=== PATIENT | male | born 1955 | race Two or more races ===

== ENCOUNTER → 2017-03-01 | Outpatient (CLI) | payer OTHER | END | disposition home or self-care (01) | LOC: LAB 14:14 | DX: N41.9 Inflammatory disease of prostate, unspecified (principal) | CPT/HCPCS: 87086 ==

== ENCOUNTER → 2017-06-16 | Outpatient (CLI) | payer OTHER ==
[2017-06-16 13:10] LABS: BASOPHILS ABSOLUTE AUTO 0.07 K/mm3 (0.00-0.23); BASOPHILS PERCENT AUTO 1 % (0-2); EOSINOPHILS ABSOLUTE AUTO 0.21 K/mm3 (0.00-0.68); EOSINOPHILS PERCENT AUTO 3 % (0-6); Hematocrit 48.7 % (37.0-53.0); Hemoglobin 16.7 g/dL (13.5-17.5); IMMATURE GRAN ABSOLUTE AUTO 0.02 K/mm3 (0.00-0.10); IMMATURE GRAN PERCENT AUTO 0 % (0-1); LYMPHOCYTES ABSOLUTE AUTO 0.92 K/mm3 (0.84-5.20); LYMPHOCYTES PERCENT AUTO 14 % (21-46); MONOCYTES ABSOLUTE AUTO 0.53 K/mm3 (0.16-1.47); MONOCYTES PERCENT AUTO 8 % (4-13); Mean Corpuscular HGB 30.1 pg (26.0-34.0); Mean Corpuscular HGB Conc 34.3 g/dL (31.5-36.5); Mean Corpuscular Volume 88 fL (80-100); Mean Platelet Volume 10.5 fL (9.1-12.4); NEUTROPHILS ABSOLUTE AUTO 4.88 K/mm3 (1.96-9.15); NEUTROPHILS PERCENT AUTO 74 % (41-73); Platelet Count 217 K/mm3 (150-400); RDW Coefficient Variation 12.8 % (11.7-14.2); RDW Standard Deviation 41.4 fL (35.1-46.3); Red Blood Cell Count 5.54 M/mm3 (4.30-5.90); White Blood Cell Count 6.63 K/mm3 (4.00-11.30)
[2017-06-16 13:20] LABS: Anion Gap 7 mmol/L (6-16); Blood Urea Nitrogen 8 mg/dL (8-24); Bun/Creatinine Ratio 7.4 (12.0-20.0); CO2, Blood 30 mmol/L (21-32); Calcium, Blood 8.9 mg/dL (8.5-10.1); Chloride, Blood 100 mmol/L (98-108); Creatinine, Blood 1.08 mg/dL (0.60-1.20); Glomerular Filtration Rate >60 (60-); Glucose, Blood 106 mg/dL (70-99); Potassium, Blood 4.4 mmol/L (3.5-5.5); Sodium, Blood 137 mmol/L (136-145)
== END | disposition home or self-care (01) ==
LOC: LAB EV 13:05 → LAB SHORT 13:05
PROVIDERS: Family Medicine
DX: B34.9 Viral infection, unspecified (principal)
CPT/HCPCS: 80048; 85025

== ENCOUNTER → 2017-06-29 | Outpatient (CLI) | payer OTHER | LOC: LAB 14:20 → LAB SHORT 14:20 | PROVIDERS: Hospitalist | DX: Z12.5 Encounter for screening for malignant neoplasm of prostate (principal) | CPT/HCPCS: G0103 ==

== ENCOUNTER → 2017-09-05 | Outpatient (CLI) | payer OTHER ==
[2017-09-05 14:02] LABS: BASOPHILS ABSOLUTE AUTO 0.04 K/mm3 (0.00-0.23); BASOPHILS PERCENT AUTO 1 % (0-2); EOSINOPHILS PERCENT AUTO 1 % (0-6); Hematocrit 46.5 % (37.0-53.0); Hemoglobin 15.9 g/dL (13.5-17.5); IMMATURE GRAN ABSOLUTE AUTO 0.02 K/mm3 (0.00-0.10); IMMATURE GRAN PERCENT AUTO 0 % (0-1); LYMPHOCYTES ABSOLUTE AUTO 1.02 K/mm3 (0.84-5.20); LYMPHOCYTES PERCENT AUTO 14 % (21-46); MONOCYTES ABSOLUTE AUTO 0.54 K/mm3 (0.16-1.47); MONOCYTES PERCENT AUTO 7 % (4-13); Mean Corpuscular HGB 30.2 pg (26.0-34.0); Mean Corpuscular HGB Conc 34.2 g/dL (31.5-36.5); Mean Corpuscular Volume 88 fL (80-100); Mean Platelet Volume 11.1 fL (9.1-12.4); NEUTROPHILS ABSOLUTE AUTO 5.62 K/mm3 (1.96-9.15); NEUTROPHILS PERCENT AUTO 77 % (41-73); Platelet Count 219 K/mm3 (150-400); RDW Coefficient Variation 12.8 % (11.7-14.2); RDW Standard Deviation 41.1 fL (35.1-46.3); Red Blood Cell Count 5.27 M/mm3 (4.30-5.90); White Blood Cell Count 7.34 K/mm3 (4.00-11.30)
[2017-09-05 15:10] LABS: Alanine Aminotransfer (ALT/SGP 18 U/L (12-78); Albumin, Blood 4.2 g/dL (3.4-5.0); Albumin/Globulin Ratio 1.2 (0.8-1.8); Alk Phos 79 U/L (50-136); Anion Gap 10 mmol/L (6-16); Aspartate Aminotrans (AST/SGOT 14 U/L (12-37); Bilirubin, Total 0.6 mg/dL (0.1-1.0); Blood Urea Nitrogen 12 mg/dL (8-24); Bun/Creatinine Ratio 13.8 (12.0-20.0); CO2, Blood 23 mmol/L (21-32); Calcium, Blood 9.1 mg/dL (8.5-10.1); Chloride, Blood 105 mmol/L (98-108); Creatinine, Blood 0.87 mg/dL (0.60-1.20); Globulin, Blood 3.5 g/dL (2.2-4.0); Glomerular Filtration Rate >60 (60-); Glucose, Blood 93 mg/dL (70-99); Potassium, Blood 4.3 mmol/L (3.5-5.5); Sodium, Blood 138 mmol/L (136-145); Total Protein, Blood 7.7 g/dL (6.4-8.2)
== END ==
LOC: LAB SHORT 11:29 → LAB 11:29
PROVIDERS: Hospitalist
DX: R10.11 Right upper quadrant pain (principal)
CPT/HCPCS: 80053; 85025; 85651

== ENCOUNTER → 2017-11-06 | Outpatient (CLI) | payer OTHER ==
[2017-11-06 18:07] LABS: BASOPHILS ABSOLUTE AUTO 0.06 K/mm3 (0.00-0.23); BASOPHILS PERCENT AUTO 1 % (0-2); EOSINOPHILS ABSOLUTE AUTO 0.22 K/mm3 (0.00-0.68); EOSINOPHILS PERCENT AUTO 3 % (0-6); Hematocrit 45.4 % (37.0-53.0); Hemoglobin 15.4 g/dL (13.5-17.5); IMMATURE GRAN ABSOLUTE AUTO 0.03 K/mm3 (0.00-0.10); IMMATURE GRAN PERCENT AUTO 0 % (0-1); LYMPHOCYTES ABSOLUTE AUTO 1.59 K/mm3 (0.84-5.20); LYMPHOCYTES PERCENT AUTO 20 % (21-46); MONOCYTES ABSOLUTE AUTO 0.62 K/mm3 (0.16-1.47); MONOCYTES PERCENT AUTO 8 % (4-13); Mean Corpuscular HGB 30.1 pg (26.0-34.0); Mean Corpuscular HGB Conc 33.9 g/dL (31.5-36.5); Mean Corpuscular Volume 89 fL (80-100); NEUTROPHILS ABSOLUTE AUTO 5.35 K/mm3 (1.96-9.15); NEUTROPHILS PERCENT AUTO 68 % (41-73); Platelet Count 226 K/mm3 (150-400); RDW Coefficient Variation 12.4 % (11.7-14.2); RDW Standard Deviation 40.7 fL (35.1-46.3); Red Blood Cell Count 5.11 M/mm3 (4.30-5.90); White Blood Cell Count 7.87 K/mm3 (4.00-11.30)
[2017-11-06 18:51] LABS: Anion Gap 8 mmol/L (6-16); Blood Urea Nitrogen 9 mg/dL (8-24); Bun/Creatinine Ratio 10.1 (12.0-20.0); CO2, Blood 25 mmol/L (21-32); Calcium, Blood 8.6 mg/dL (8.5-10.1); Chloride, Blood 106 mmol/L (98-108); Creatinine, Blood 0.89 mg/dL (0.60-1.20); Glomerular Filtration Rate >60 (60-); Glucose, Blood 86 mg/dL (70-99); Potassium, Blood 4.1 mmol/L (3.5-5.5); Sodium, Blood 139 mmol/L (136-145)
== END | disposition home or self-care (01) ==
LOC: LAB 15:52 → LAB SHORT 15:52
PROVIDERS: Hospitalist
DX: N41.0 Acute prostatitis (principal)
CPT/HCPCS: 80048; 85025

== ENCOUNTER → 2018-08-27 | Outpatient (CLI) | payer OTHER ==
[2018-08-27 14:19] LABS: BASOPHILS ABSOLUTE AUTO 0.05 K/mm3 (0.00-0.23); BASOPHILS PERCENT AUTO 1 % (0-2); EOSINOPHILS ABSOLUTE AUTO 0.13 K/mm3 (0.00-0.68); EOSINOPHILS PERCENT AUTO 2 % (0-6); Hematocrit 49.5 % (37.0-53.0); Hemoglobin 16.3 g/dL (13.5-17.5); IMMATURE GRAN ABSOLUTE AUTO 0.02 K/mm3 (0.00-0.10); IMMATURE GRAN PERCENT AUTO 0 % (0-1); LYMPHOCYTES ABSOLUTE AUTO 0.92 K/mm3 (0.84-5.20); LYMPHOCYTES PERCENT AUTO 15 % (21-46); MONOCYTES ABSOLUTE AUTO 0.54 K/mm3 (0.16-1.47); MONOCYTES PERCENT AUTO 9 % (4-13); Mean Corpuscular HGB 30.1 pg (26.0-34.0); Mean Corpuscular HGB Conc 32.9 g/dL (31.5-36.5); Mean Corpuscular Volume 92 fL (80-100); Mean Platelet Volume 11.1 fL (9.1-12.4); NEUTROPHILS ABSOLUTE AUTO 4.44 K/mm3 (1.96-9.15); NEUTROPHILS PERCENT AUTO 73 % (41-73); Platelet Count 206 K/mm3 (150-400); RDW Coefficient Variation 13.4 % (11.7-14.2); RDW Standard Deviation 44.7 fL (35.1-46.3); Red Blood Cell Count 5.41 M/mm3 (4.30-5.90)
[2018-08-27 14:35] LABS: Alanine Aminotransfer (ALT/SGP 26 U/L (12-78); Albumin, Blood 4.3 g/dL (3.4-5.0); Albumin/Globulin Ratio 1.5 (0.8-1.8); Alk Phos 79 U/L (50-136); Anion Gap 7 mmol/L (6-16); Aspartate Aminotrans (AST/SGOT 15 U/L (12-37); Bilirubin, Total 0.8 mg/dL (0.1-1.0); Blood Urea Nitrogen 9 mg/dL (8-24); Bun/Creatinine Ratio 9.3 (12.0-20.0); CO2, Blood 26 mmol/L (21-32); Calcium, Blood 9.9 mg/dL (8.5-10.1); Chloride, Blood 105 mmol/L (98-108); Creatinine, Blood 0.97 mg/dL (0.60-1.20); Globulin, Blood 2.9 g/dL (2.2-4.0); Glomerular Filtration Rate >60 (60-); Glucose, Blood 99 mg/dL (70-99); Sodium, Blood 138 mmol/L (136-145); Total Protein, Blood 7.2 g/dL (6.4-8.2)
== END | disposition home or self-care (01) ==
LOC: LAB SHORT 13:51 → LAB 13:51
PROVIDERS: Hospitalist
DX: R59.9 Enlarged lymph nodes, unspecified (principal)
CPT/HCPCS: 80053; 85025; 85651

== ENCOUNTER → 2018-12-06 | Outpatient (CLI) | payer OTHER ==
[2018-12-06 16:30] LABS: BASOPHILS ABSOLUTE AUTO 0.08 K/mm3 (0.00-0.23); BASOPHILS PERCENT AUTO 1 % (0-2); EOSINOPHILS ABSOLUTE AUTO 0.26 K/mm3 (0.00-0.68); EOSINOPHILS PERCENT AUTO 4 % (0-6); Hematocrit 46.9 % (37.0-53.0); Hemoglobin 15.3 g/dL (13.5-17.5); IMMATURE GRAN ABSOLUTE AUTO 0.01 K/mm3 (0.00-0.10); IMMATURE GRAN PERCENT AUTO 0 % (0-1); LYMPHOCYTES ABSOLUTE AUTO 0.87 K/mm3 (0.84-5.20); LYMPHOCYTES PERCENT AUTO 13 % (21-46); MONOCYTES ABSOLUTE AUTO 0.65 K/mm3 (0.16-1.47); MONOCYTES PERCENT AUTO 10 % (4-13); Mean Corpuscular HGB 29.8 pg (26.0-34.0); Mean Corpuscular HGB Conc 32.6 g/dL (31.5-36.5); Mean Corpuscular Volume 91 fL (80-100); Mean Platelet Volume 11.7 fL (9.1-12.4); NEUTROPHILS ABSOLUTE AUTO 4.79 K/mm3 (1.96-9.15); NEUTROPHILS PERCENT AUTO 72 % (41-73); Platelet Count 216 K/mm3 (150-400); RDW Coefficient Variation 12.5 % (11.7-14.2); RDW Standard Deviation 41.2 fL (35.1-46.3); Red Blood Cell Count 5.14 M/mm3 (4.30-5.90); White Blood Cell Count 6.66 K/mm3 (4.00-11.30)
[2018-12-06 17:25] LABS: Alanine Aminotransfer (ALT/SGP 24 U/L (12-78); Albumin/Globulin Ratio 1.5 (0.8-1.8); Alk Phos 79 U/L (50-136); Amylase, Blood 16 U/L (25-115); Anion Gap 6 mmol/L (6-16); Aspartate Aminotrans (AST/SGOT 12 U/L (12-37); Bilirubin, Total 0.5 mg/dL (0.1-1.0); Blood Urea Nitrogen 6 mg/dL (8-24); Bun/Creatinine Ratio 7.4 (12.0-20.0); CO2, Blood 25 mmol/L (21-32); Calcium, Blood 8.9 mg/dL (8.5-10.1); Chloride, Blood 107 mmol/L (98-108); Creatinine, Blood 0.81 mg/dL (0.60-1.20); Globulin, Blood 2.7 g/dL (2.2-4.0); Glomerular Filtration Rate >60 (60-); Glucose, Blood 100 mg/dL (70-99); Potassium, Blood 4.1 mmol/L (3.5-5.5); Sodium, Blood 138 mmol/L (136-145); Total Protein, Blood 6.7 g/dL (6.4-8.2)
== END | disposition home or self-care (01) ==
LOC: LAB 14:21 → LAB SHORT 14:21
PROVIDERS: Hospitalist
DX: R10.11 Right upper quadrant pain (principal)
CPT/HCPCS: 80053; 82150; 85025

== ENCOUNTER → 2020-04-02 | Outpatient (CLI) | payer MEDICARE, OTHER ==
[~2020-04-02] MED LIST: ASPI81CH PO; ATEN25; Betamethasone V15 GM; ESOM20 PO; LATA.005SO; OMEP20ER PO; ONDA4ODT MM; RANO500T; ROSU5 PO; SUMA25 PO; VERA180ER PO
[2020-04-02 16:28] LABS: BASOPHILS ABSOLUTE AUTO 0.06 K/mm3 (0.00-0.23); BASOPHILS PERCENT AUTO 1 % (0-2); EOSINOPHILS ABSOLUTE AUTO 0.14 K/mm3 (0.00-0.68); EOSINOPHILS PERCENT AUTO 2 % (0-6); Hematocrit 50.4 % (37.0-53.0); Hemoglobin 16.9 g/dL (13.5-17.5); IMMATURE GRAN ABSOLUTE AUTO 0.02 K/mm3 (0.00-0.10); IMMATURE GRAN PERCENT AUTO 0 % (0-1); LYMPHOCYTES ABSOLUTE AUTO 0.97 K/mm3 (0.84-5.20); LYMPHOCYTES PERCENT AUTO 14 % (21-46); MONOCYTES ABSOLUTE AUTO 0.67 K/mm3 (0.16-1.47); MONOCYTES PERCENT AUTO 9 % (4-13); Mean Corpuscular HGB 31.7 pg (26.0-34.0); Mean Corpuscular HGB Conc 33.5 g/dL (31.5-36.5); Mean Corpuscular Volume 95 fL (80-100); Mean Platelet Volume 11.3 fL (9.1-12.4); NEUTROPHILS ABSOLUTE AUTO 5.29 K/mm3 (1.96-9.15); NEUTROPHILS PERCENT AUTO 74 % (41-73); Platelet Count 218 K/mm3 (150-400); RDW Coefficient Variation 12.6 % (11.7-14.2); RDW Standard Deviation 43.1 fL (35.1-46.3); Red Blood Cell Count 5.33 M/mm3 (4.30-5.90); White Blood Cell Count 7.15 K/mm3 (4.00-11.30)
[2020-04-02 16:55] LABS: Alanine Aminotransfer (ALT/SGP 20 U/L (12-78); Albumin, Blood 4.1 g/dL (3.4-5.0); Albumin/Globulin Ratio 1.5 (0.8-1.8); Alk Phos 76 U/L (50-136); Anion Gap 7 mmol/L (6-16); Aspartate Aminotrans (AST/SGOT 8 U/L (12-37); Bilirubin, Total 0.6 mg/dL (0.1-1.0); Blood Urea Nitrogen 12 mg/dL (8-24); Bun/Creatinine Ratio 12.8 (12.0-20.0); CO2, Blood 22 mmol/L (21-32); Calcium, Blood 9.1 mg/dL (8.5-10.1); Chloride, Blood 110 mmol/L (98-108); Creatinine, Blood 0.94 mg/dL (0.60-1.20); Globulin, Blood 2.8 g/dL (2.2-4.0); Glomerular Filtration Rate >60 (60-); Glucose, Blood 91 mg/dL (70-99); Potassium, Blood 4.3 mmol/L (3.5-5.5); Sodium, Blood 139 mmol/L (136-145); Total Protein, Blood 6.9 g/dL (6.4-8.2)
== END | disposition home or self-care (01) ==
LOC: LAB SHORT 09:55 → PLD 09:55
PROVIDERS: Hospitalist
DX: Z12.5 Encounter for screening for malignant neoplasm of prostate (principal); I25.10 Atherosclerotic heart disease of native coronary artery without angina pectoris; R30.0 Dysuria
CPT/HCPCS: 80053; 85025; 87086; G0103

== ENCOUNTER 2020-05-29 11:36 | Day surgery (SDC) | payer MEDICARE, OTHER ==
[~2020-05-29] VITALS: Ht 182.9 cm; Wt 95.9 kg
[~2020-05-29 11:36] MED LIST changes: -Betamethasone V15 GM; -LATA.005SO; -OMEP20ER PO; -ONDA4ODT MM; -RANO500T
[2020-05-29] MEDS ORDERED: RANO500T (11:55)
[2020-05-29] MEDS ORDERED: LATA.005SO (11:56)
[2020-05-29] MEDS ORDERED: Betamethasone V15 GM (11:57)
== END 2020-05-29 12:58 | disposition home or self-care (01) ==
LOC: ORSCSDS 11:36
PROVIDERS: Internal Medicine Gastroenterology
PROC: 0DBH8ZX Excision of Cecum, Via Natural or Artificial Opening Endoscopic, Diagnostic (ICD-10-PCS; principal; 2020-05-29 13:30)
DX: R19.5 Other fecal abnormalities (principal); D12.0 Benign neoplasm of cecum; K64.8 Other hemorrhoids; R19.4 Change in bowel habit; I25.2 Old myocardial infarction; K57.30 Diverticulosis of large intestine without perforation or abscess without bleeding; K21.9 Gastro-esophageal reflux disease without esophagitis; Z86.19 Personal history of other infectious and parasitic diseases; Z79.899 Other long term (current) drug therapy
CPT/HCPCS: 88305; J2704; J7120

== ENCOUNTER 2020-08-06 16:01 | Emergency (ER) | payer MEDICARE, OTHER ==
[~2020-08-06] VITALS: Ht 188 cm; Wt 95.2 kg
[~2020-08-06 16:01] MED LIST changes: +Betamethasone V15 GM; +LATA.005SO; +RANO500T
== END 2020-08-06 17:08 | disposition home or self-care (01) ==
LOC: ER 16:01
DX: M79.662 Pain in left lower leg (principal); F17.220 Nicotine dependence, chewing tobacco, uncomplicated; Z79.82 Long term (current) use of aspirin; Z79.899 Other long term (current) drug therapy; Z88.0 Allergy status to penicillin; Z88.8 Allergy status to other drugs, medicaments and biological substances
CPT/HCPCS: 93971; 99283-25

== ENCOUNTER 2020-08-31 13:31 | Emergency (ER) | payer MEDICARE, OTHER ==
[~2020-08-31] VITALS: Ht 185.4 cm; Wt 95.2 kg
[2020-08-31 14:09] LABS: BASOPHILS ABSOLUTE AUTO 0.05 K/mm3 (0.00-0.23); BASOPHILS PERCENT AUTO 1 % (0-2); EOSINOPHILS ABSOLUTE AUTO 0.12 K/mm3 (0.00-0.68); EOSINOPHILS PERCENT AUTO 2 % (0-6); IMMATURE GRAN ABSOLUTE AUTO 0.02 K/mm3 (0.00-0.10); IMMATURE GRAN PERCENT AUTO 0 % (0-1); LYMPHOCYTES ABSOLUTE AUTO 0.93 K/mm3 (0.84-5.20); LYMPHOCYTES PERCENT AUTO 13 % (21-46); MONOCYTES ABSOLUTE AUTO 0.61 K/mm3 (0.16-1.47); MONOCYTES PERCENT AUTO 8 % (4-13); Mean Corpuscular HGB Conc 34.7 g/dL (31.5-36.5); Mean Corpuscular Volume 89 fL (80-100); Mean Platelet Volume 10.4 fL (9.1-12.4); NEUTROPHILS ABSOLUTE AUTO 5.56 K/mm3 (1.96-9.15); NEUTROPHILS PERCENT AUTO 76 % (41-73); Platelet Count 217 K/mm3 (150-400); RDW Coefficient Variation 12.7 % (11.7-14.2); RDW Standard Deviation 41.3 fL (35.1-46.3); Red Blood Cell Count 5.48 M/mm3 (4.30-5.90); White Blood Cell Count 7.29 K/mm3 (4.00-11.30)
[2020-08-31 14:34] LABS: Alanine Aminotransfer (ALT/SGP 19 U/L (12-78); Albumin, Blood 3.9 g/dL (3.4-5.0); Albumin/Globulin Ratio 1.1 (0.8-1.8); Alk Phos 74 U/L (50-136); Anion Gap 7 mmol/L (6-16); Aspartate Aminotrans (AST/SGOT 11 U/L (12-37); Bilirubin, Total 0.3 mg/dL (0.1-1.0); Blood Urea Nitrogen 10 mg/dL (8-24); CO2, Blood 22 mmol/L (21-32); Calcium, Blood 8.6 mg/dL (8.5-10.1); Chloride, Blood 108 mmol/L (98-108); Creatinine, Blood 0.91 mg/dL (0.60-1.20); Globulin, Blood 3.4 g/dL (2.2-4.0); Glomerular Filtration Rate >60 (60-); Glucose, Blood 126 mg/dL (70-99); Potassium, Blood 4.2 mmol/L (3.5-5.5); Sodium, Blood 137 mmol/L (136-145); Total Protein, Blood 7.3 g/dL (6.4-8.2)
[2020-08-31] MEDS ORDERED: OMEP20ER PO (16:52)
[2020-08-31 17:05] LABS: Source, Urine Clean Catch
[2020-08-31 17:12] LABS: Appearance, Urine Clear (Clear); Bilirubin, Urine Neg (Neg); Blood, Urine 1+ (Neg); Color, Urine Yellow (P-Yellow); Glucose Qualitative, Urine 1+ (Neg); Ketones, Urine Neg (Neg); Leukocyte Esterase, Urine 1+ (Neg); Nitrite, Urine Neg (Neg); Protein, Urine 1+ (Neg); Specific Gravity, Urine 1.025 (1.003-1.022); Urobilinogen, Urine NORM (Normal)
[2020-08-31 17:23] LABS: Bacteria Mod /hpf; Mucus Light (0-Heavy); Red Blood Cells, Urine 0-2 /hpf (0-2); Squamous Epithelial Cells Not Seen /hpf (Few); White Blood Cells, Urine 0-2 /hpf (0-5)
[2020-08-31] MEDS ORDERED: ONDA4ODT MM (17:30)
== END 2020-08-31 17:56 | disposition home or self-care (01) ==
LOC: ER 13:31
PROVIDERS: Physician Assistant
DX: Z03.6 Encounter for observation for suspected toxic effect from ingested substance ruled out (principal); F17.220 Nicotine dependence, chewing tobacco, uncomplicated; Z88.0 Allergy status to penicillin; Z88.8 Allergy status to other drugs, medicaments and biological substances; Z79.899 Other long term (current) drug therapy
CPT/HCPCS: 36415; 80053; 81001; 83690; 85025; 87086; 96374; 99283-25; J2405; J7030

== ENCOUNTER → 2021-03-09 | Outpatient (CLI) | payer MEDICARE, OTHER ==
[~2021-03-09] MED LIST changes: +OMEP20ER PO; +ONDA4ODT MM
[2021-03-09 15:09] LABS: BASOPHILS ABSOLUTE AUTO 0.05 K/mm3 (0.00-0.23); BASOPHILS PERCENT AUTO 1 % (0-2); EOSINOPHILS ABSOLUTE AUTO 0.19 K/mm3 (0.00-0.68); EOSINOPHILS PERCENT AUTO 3 % (0-6); Hematocrit 47.7 % (37.0-53.0); Hemoglobin 15.9 g/dL (13.5-17.5); IMMATURE GRAN ABSOLUTE AUTO 0.02 K/mm3 (0.00-0.10); IMMATURE GRAN PERCENT AUTO 0 % (0-1); LYMPHOCYTES ABSOLUTE AUTO 0.83 K/mm3 (0.84-5.20); LYMPHOCYTES PERCENT AUTO 13 % (21-46); MONOCYTES PERCENT AUTO 10 % (4-13); Mean Corpuscular HGB Conc 33.3 g/dL (31.5-36.5); Mean Corpuscular Volume 93 fL (80-100); Mean Platelet Volume 10.5 fL (9.1-12.4); NEUTROPHILS ABSOLUTE AUTO 4.59 K/mm3 (1.96-9.15); NEUTROPHILS PERCENT AUTO 73 % (41-73); Platelet Count 206 K/mm3 (150-400); RDW Coefficient Variation 12.9 % (11.7-14.2); Red Blood Cell Count 5.13 M/mm3 (4.30-5.90); White Blood Cell Count 6.28 K/mm3 (4.00-11.30)
== END | disposition home or self-care (01) ==
LOC: LAB SHORT 11:55
PROVIDERS: Hospitalist
DX: R59.1 Generalized enlarged lymph nodes (principal)
CPT/HCPCS: 85025

== ENCOUNTER → 2021-04-01 | Outpatient (CLI) | payer MEDICARE, OTHER | LOC: LAB 13:28 → LAB SHORT 13:28 | DX: N41.0 Acute prostatitis (principal) | CPT/HCPCS: 87086 ==

== ENCOUNTER → 2021-08-23 | Outpatient (CLI) | payer MEDICARE, OTHER | END | disposition home or self-care (01) | LOC: LAB 17:13 → LAB SHORT 17:13 | DX: R30.0 Dysuria (principal) | CPT/HCPCS: 87086 ==

== ENCOUNTER → 2021-12-01 | Outpatient (CLI) | payer MEDICARE, OTHER ==
[2021-12-01 14:31] LABS: BASOPHILS ABSOLUTE AUTO 0.06 K/mm3 (0.00-0.23); BASOPHILS PERCENT AUTO 1 % (0-2); EOSINOPHILS ABSOLUTE AUTO 0.18 K/mm3 (0.00-0.68); EOSINOPHILS PERCENT AUTO 2 % (0-6); Hematocrit 48.6 % (37.0-53.0); IMMATURE GRAN ABSOLUTE AUTO 0.01 K/mm3 (0.00-0.10); IMMATURE GRAN PERCENT AUTO 0 % (0-1); LYMPHOCYTES ABSOLUTE AUTO 1.13 K/mm3 (0.84-5.20); LYMPHOCYTES PERCENT AUTO 15 % (21-46); MONOCYTES ABSOLUTE AUTO 0.57 K/mm3 (0.16-1.47); MONOCYTES PERCENT AUTO 8 % (4-13); Mean Corpuscular HGB 30.8 pg (26.0-34.0); Mean Corpuscular HGB Conc 32.9 g/dL (31.5-36.5); Mean Corpuscular Volume 94 fL (80-100); Mean Platelet Volume 10.5 fL (9.1-12.4); NEUTROPHILS ABSOLUTE AUTO 5.41 K/mm3 (1.96-9.15); NEUTROPHILS PERCENT AUTO 74 % (41-73); Platelet Count 205 K/mm3 (150-400); RDW Coefficient Variation 12.5 % (11.7-14.2); White Blood Cell Count 7.36 K/mm3 (4.00-11.30)
[2021-12-01 14:56] LABS: Alanine Aminotransfer (ALT/SGP 25 U/L (12-78); Albumin, Blood 3.7 g/dL (3.4-5.0); Albumin/Globulin Ratio 1.3 (0.8-1.8); Alk Phos 67 U/L (50-136); Anion Gap 4 mmol/L (6-16); Aspartate Aminotrans (AST/SGOT 10 U/L (12-37); Bilirubin, Total 0.7 mg/dL (0.1-1.0); Blood Urea Nitrogen 10 mg/dL (8-24); Bun/Creatinine Ratio 9.3 (12.0-20.0); CHOL/HDL RATIO 2.5; CO2, Blood 26 mmol/L (21-32); Calcium, Blood 8.6 mg/dL (8.5-10.1); Chloride, Blood 109 mmol/L (98-108); Cholesterol 128 mg/dL (50-200); Creatinine, Blood 1.08 mg/dL (0.60-1.20); Globulin, Blood 2.9 g/dL (2.2-4.0); Glomerular Filtration Rate 75 (60-); Glucose, Blood 103 mg/dL (70-99); HDL Cholesterol 51 mg/dL (>39); LDL/HDL RATIO 1.2; Low Density Lipoprotein Chol 63 mg/dL (0-110); Potassium, Blood 4.1 mmol/L (3.5-5.5); Sodium, Blood 139 mmol/L (136-145); Total Protein, Blood 6.6 g/dL (6.4-8.2); Triglycerides 70 mg/dL (30-160); Very Low Density Lipoprot Chol 14 mg/dL (6-32)
== END | disposition home or self-care (01) ==
LOC: LAB SHORT 08:10 → LAB 08:10
PROVIDERS: Hospitalist
DX: R00.0 Tachycardia, unspecified (principal)
CPT/HCPCS: 80053; 80061; 84443; 85025

== ENCOUNTER → 2022-04-28 | Outpatient (CLI) | payer MEDICARE, OTHER ==
[~2022-04-28] MED LIST changes: +ACYC800 PO; +ONDA4 PO
[2022-04-28 18:48] LABS: BASOPHILS ABSOLUTE AUTO 0.05 K/mm3 (0.00-0.23); BASOPHILS PERCENT AUTO 1 % (0-2); EOSINOPHILS ABSOLUTE AUTO 0.23 K/mm3 (0.00-0.68); EOSINOPHILS PERCENT AUTO 4 % (0-6); Hematocrit 45.5 % (37.0-53.0); Hemoglobin 15.9 g/dL (13.5-17.5); IMMATURE GRAN ABSOLUTE AUTO 0.02 K/mm3 (0.00-0.10); IMMATURE GRAN PERCENT AUTO 0 % (0-1); LYMPHOCYTES ABSOLUTE AUTO 0.85 K/mm3 (0.84-5.20); LYMPHOCYTES PERCENT AUTO 16 % (21-46); MONOCYTES ABSOLUTE AUTO 0.48 K/mm3 (0.16-1.47); MONOCYTES PERCENT AUTO 9 % (4-13); Mean Corpuscular HGB 31.9 pg (26.0-34.0); Mean Corpuscular HGB Conc 34.9 g/dL (31.5-36.5); Mean Corpuscular Volume 91 fL (80-100); Mean Platelet Volume 11.1 fL (9.1-12.4); NEUTROPHILS ABSOLUTE AUTO 3.85 K/mm3 (1.96-9.15); NEUTROPHILS PERCENT AUTO 70 % (41-73); Platelet Count 171 K/mm3 (150-400); RDW Coefficient Variation 13.2 % (11.7-14.2); RDW Standard Deviation 43.8 fL (35.1-46.3); Red Blood Cell Count 4.99 M/mm3 (4.30-5.90); White Blood Cell Count 5.48 K/mm3 (4.00-11.30)
[2022-04-29 10:01] LABS: Albumin, Blood 3.8 g/dL (3.4-5.0); Albumin/Globulin Ratio 1.4 (0.8-1.8); Bilirubin, Total 0.8 mg/dL (0.1-1.0); Bun/Creatinine Ratio 6.9 (12.0-20.0); Calcium, Blood 8.6 mg/dL (8.5-10.1); Creatinine, Blood 1.01 mg/dL (0.60-1.20); Globulin, Blood 2.7 g/dL (2.2-4.0); Total Protein, Blood 6.5 g/dL (6.4-8.2)
== END | disposition home or self-care (01) ==
LOC: LAB 14:20 → LAB SHORT 14:20
PROVIDERS: Hospitalist
DX: R10.31 Right lower quadrant pain (principal)
CPT/HCPCS: 80053; 85025

== ENCOUNTER → 2022-08-04 | Outpatient (CLI) | payer MEDICARE, OTHER | END | disposition home or self-care (01) | LOC: LAB SHORT 15:16 → PLD 15:16 | DX: L57.0 Actinic keratosis (principal) | CPT/HCPCS: 88305 ==

== ENCOUNTER → 2022-12-12 | Outpatient (CLI) | payer MEDICARE, OTHER ==
[2022-12-16 21:10] LABS: FREE TESTOSTERONE(DIRECT) 6.4 pg/mL (6.6-18.1); TESTOSTERONE, SERUM 368 ng/dL (264-916)
== END ==
LOC: LAB SHORT 17:50 → LAB 17:50
PROVIDERS: Hospitalist
DX: R68.82 Decreased libido (principal)
CPT/HCPCS: 84402; 84403

== ENCOUNTER 2023-06-28 02:51 | Emergency (ER) | payer MEDICARE, OTHER ==
[~2023-06-28] VITALS: Ht 182.9 cm; Wt 97.5 kg
[2023-06-28 02:55] VITALS: BP 120/79
[2023-06-28] MEDS ORDERED: Ipratropium/Albuterol SulF 2.5-0.5MG/3 ML Amp INH PRN (03:05)
[2023-06-28 03:42] LABS: BASOPHILS ABSOLUTE AUTO 0.03 K/mm3 (0.00-0.23); BASOPHILS PERCENT AUTO 0 % (0-2); EOSINOPHILS ABSOLUTE AUTO 0.28 K/mm3 (0.00-0.68); EOSINOPHILS PERCENT AUTO 4 % (0-6); Hematocrit 44.7 % (37.0-53.0); Hemoglobin 15.6 g/dL (13.5-17.5); IMMATURE GRAN ABSOLUTE AUTO 0.01 K/mm3 (0.00-0.10); IMMATURE GRAN PERCENT AUTO 0 % (0-1); LYMPHOCYTES ABSOLUTE AUTO 0.71 K/mm3 (0.84-5.20); LYMPHOCYTES PERCENT AUTO 10 % (21-46); MONOCYTES ABSOLUTE AUTO 0.61 K/mm3 (0.16-1.47); MONOCYTES PERCENT AUTO 9 % (4-13); Mean Corpuscular HGB 31.5 pg (26.0-34.0); Mean Corpuscular HGB Conc 34.9 g/dL (31.5-36.5); Mean Corpuscular Volume 90 fL (80-100); NEUTROPHILS ABSOLUTE AUTO 5.44 K/mm3 (1.96-9.15); NEUTROPHILS PERCENT AUTO 77 % (41-73); Platelet Count 159 K/mm3 (150-400); RDW Coefficient Variation 12.3 % (11.7-14.2); RDW Standard Deviation 40.2 fL (35.1-46.3); Red Blood Cell Count 4.96 M/mm3 (4.30-5.90); White Blood Cell Count 7.08 K/mm3 (4.00-11.30)
[2023-06-28 04:05] LABS: Albumin, Blood 3.8 g/dL (3.4-5.0); Albumin/Globulin Ratio 1.2 (0.8-1.8); Bilirubin, Total 0.6 mg/dL (0.1-1.0); Bun/Creatinine Ratio 6.9 (12.0-20.0); Calcium, Blood 8.7 mg/dL (8.5-10.1); Creatinine, Blood 0.87 mg/dL (0.60-1.20); Globulin, Blood 3.3 g/dL (2.2-4.0); Potassium, Blood 4.1 mmol/L (3.5-5.5); Total Protein, Blood 7.1 g/dL (6.4-8.2)
[2023-06-28] MEDS ORDERED: PredniSONE 20 MG Tab PO ONE (04:45)
[2023-06-28] MEDS ORDERED: DELTASONE20 MG PO (05:11)
[2023-06-28 05:49] LABS: Influenza A, PCR NEGATIVE (NEGATIVE); Influenza B, PCR NEGATIVE (NEGATIVE); Resp Syncytial Virus, PCR NEGATIVE (NEGATIVE); SARS-Cov-2 (COVID-19) PCR, MMC NEGATIVE (NEGATIVE)
== END 2023-06-28 05:17 | disposition home or self-care (01) ==
LOC: ER 02:51
PROVIDERS: Emergency Medicine
DX: B34.9 Viral infection, unspecified (principal); F17.220 Nicotine dependence, chewing tobacco, uncomplicated; K21.9 Gastro-esophageal reflux disease without esophagitis; J45.909 Unspecified asthma, uncomplicated; Z88.0 Allergy status to penicillin; Z88.5 Allergy status to narcotic agent; Z88.8 Allergy status to other drugs, medicaments and biological substances; Z79.82 Long term (current) use of aspirin; Z79.899 Other long term (current) drug therapy
CPT/HCPCS: 0241U; 71046; 80053; 83880; 84484; 85025; 93005; 93010; 94640; 94664; 99285-25; J7512

== ENCOUNTER 2023-12-16 03:50 | Emergency (ER) | payer MEDICARE, OTHER ==
[~2023-12-16] VITALS: Ht 182.9 cm; Wt 97.5 kg
[~2023-12-16 03:50] MED LIST changes: +DELTASONE20 MG PO
[2023-12-16] MEDS ORDERED: Ondansetron HCl 2 MG / ML 2ML Vial IV PRN (04:10)
[2023-12-16 04:39] LABS: BASOPHILS ABSOLUTE AUTO 0.05 K/mm3 (0.00-0.23); BASOPHILS PERCENT AUTO 1 % (0-2); EOSINOPHILS ABSOLUTE AUTO 0.31 K/mm3 (0.00-0.68); EOSINOPHILS PERCENT AUTO 4 % (0-6); Hematocrit 41.7 % (37.0-53.0); Hemoglobin 14.4 g/dL (13.5-17.5); IMMATURE GRAN ABSOLUTE AUTO 0.02 K/mm3 (0.00-0.10); IMMATURE GRAN PERCENT AUTO 0 % (0-1); LYMPHOCYTES PERCENT AUTO 12 % (21-46); MONOCYTES PERCENT AUTO 8 % (4-13); Mean Corpuscular HGB 30.9 pg (26.0-34.0); Mean Corpuscular HGB Conc 34.5 g/dL (31.5-36.5); Mean Corpuscular Volume 90 fL (80-100); Mean Platelet Volume 10.1 fL (9.1-12.4); NEUTROPHILS ABSOLUTE AUTO 5.54 K/mm3 (1.96-9.15); NEUTROPHILS PERCENT AUTO 75 % (41-73); Platelet Count 170 K/mm3 (150-400); RDW Coefficient Variation 13.3 % (11.7-14.2); RDW Standard Deviation 43.6 fL (35.1-46.3); Red Blood Cell Count 4.66 M/mm3 (4.30-5.90); White Blood Cell Count 7.42 K/mm3 (4.00-11.30)
[2023-12-16 05:00] LABS: Albumin, Blood 3.4 g/dL (3.4-5.0); Albumin/Globulin Ratio 1.1 (0.8-1.8); Bilirubin, Total 0.8 mg/dL (0.1-1.0); Bun/Creatinine Ratio 10.4 (12.0-20.0); Calcium, Blood 8.6 mg/dL (8.5-10.1); Creatinine, Blood 0.96 mg/dL (0.60-1.20); Globulin, Blood 3.1 g/dL (2.2-4.0); Potassium, Blood 3.9 mmol/L (3.5-5.5); Total Protein, Blood 6.5 g/dL (6.4-8.2)
[2023-12-16 06:56] LABS: Source, Urine Clean Catch
[2023-12-16] MEDS ORDERED: ONDA4ODT MM (06:59)
[2023-12-16] MEDS ORDERED: ACET500 PO (06:59)
[2023-12-16 07:03] LABS: Appearance, Urine Clear (Clear); Bilirubin, Urine Neg (Neg); Blood, Urine 1+ (Neg); Color, Urine Yellow (P-Yellow); Glucose Qualitative, Urine Neg (Neg); Ketones, Urine Neg (Neg); Leukocyte Esterase, Urine Neg (Neg); Nitrite, Urine Neg (Neg); Protein, Urine Neg (Neg); Urobilinogen, Urine NORM (Normal); pH, Urine 6.5 (5.0-8.0)
[2023-12-16 07:13] LABS: White Blood Cells, Urine 0-2 /hpf (0-5)
[2023-12-16 07:14] LABS: Bacteria Rare /hpf; Squamous Epithelial Cells Rare /hpf (Few)
[2023-12-16] MEDS ORDERED: Amoxicillin/Clavulanate K 875 MG Tab PO ONE (07:35)
[2023-12-16] MEDS ORDERED: Ibuprofen 600 MG Tab PO ONE (07:35)
[2023-12-16] MEDS ORDERED: AMOCLA875 PO (07:40)
[2023-12-16 07:50] VITALS: BP 105/66
== END 2023-12-16 07:51 | disposition home or self-care (01) ==
LOC: ER 03:50
PROVIDERS: Emergency Medicine
DX: K57.32 Diverticulitis of large intestine without perforation or abscess without bleeding (principal); K21.9 Gastro-esophageal reflux disease without esophagitis; J45.909 Unspecified asthma, uncomplicated; F17.220 Nicotine dependence, chewing tobacco, uncomplicated; Z79.52 Long term (current) use of systemic steroids; Z79.82 Long term (current) use of aspirin; Z79.899 Other long term (current) drug therapy; Z88.0 Allergy status to penicillin; Z88.8 Allergy status to other drugs, medicaments and biological substances
CPT/HCPCS: 74177; 80053; 81001; 83690; 85025; 99284-25; A9270; Q9967

== ENCOUNTER → 2024-06-27 | Outpatient (CLI) | payer MEDICARE, OTHER ==
[~2024-06-27] MED LIST changes: +ACET500 PO; +AMOCLA875 PO
[2024-06-27 19:44] LABS: BASOPHILS ABSOLUTE AUTO 0.13 K/mm3 (0.00-0.23); BASOPHILS PERCENT AUTO 2 % (0-2); EOSINOPHILS ABSOLUTE AUTO 1.36 K/mm3 (0.00-0.68); EOSINOPHILS PERCENT AUTO 19 % (0-6); Hematocrit 46.7 % (37.0-53.0); IMMATURE GRAN ABSOLUTE AUTO 0.01 K/mm3 (0.00-0.10); IMMATURE GRAN PERCENT AUTO 0 % (0-1); LYMPHOCYTES ABSOLUTE AUTO 1.16 K/mm3 (0.84-5.20); LYMPHOCYTES PERCENT AUTO 16 % (21-46); MONOCYTES ABSOLUTE AUTO 0.69 K/mm3 (0.16-1.47); MONOCYTES PERCENT AUTO 10 % (4-13); Mean Corpuscular HGB 30.7 pg (26.0-34.0); Mean Corpuscular HGB Conc 34.3 g/dL (31.5-36.5); Mean Corpuscular Volume 90 fL (80-100); Mean Platelet Volume 10.5 fL (9.1-12.4); NEUTROPHILS ABSOLUTE AUTO 3.93 K/mm3 (1.96-9.15); NEUTROPHILS PERCENT AUTO 54 % (41-73); Platelet Count 197 K/mm3 (150-400); RDW Coefficient Variation 13.1 % (11.7-14.2); RDW Standard Deviation 42.5 fL (35.1-46.3); Red Blood Cell Count 5.21 M/mm3 (4.30-5.90); White Blood Cell Count 7.28 K/mm3 (4.00-11.30)
[2024-06-27 19:53] LABS: Alanine Aminotransfer (ALT/SGP 21 U/L (12-78); Albumin, Blood 3.9 g/dL (3.4-5.0); Albumin/Globulin Ratio 1.4 (0.8-1.8); Alk Phos 69 U/L (50-136); Anion Gap 10 mmol/L (3-11); Aspartate Aminotrans (AST/SGOT 12 U/L (12-37); Bilirubin, Total 0.5 mg/dL (0.1-1.0); Blood Urea Nitrogen 8 mg/dL (8-24); Bun/Creatinine Ratio 8.9 (12.0-20.0); CO2, Blood 24 mmol/L (21-32); Calcium, Blood 8.5 mg/dL (8.5-10.1); Chloride, Blood 106 mmol/L (98-108); Globulin, Blood 2.8 g/dL (2.2-4.0); Glomerular Filtration Rate 92 (60-); Glucose, Blood 91 mg/dL (70-99); Potassium, Blood 4.2 mmol/L (3.5-5.5); Sodium, Blood 136 mmol/L (136-145); Total Protein, Blood 6.7 g/dL (6.4-8.2)
== END ==
LOC: LAB SHORT 18:07 → LAB 18:07
PROVIDERS: Hospitalist
DX: Z12.5 Encounter for screening for malignant neoplasm of prostate (principal); I10 Essential (primary) hypertension; R56.9 Unspecified convulsions
CPT/HCPCS: 80053; 84443; 85025; 85651; G0103